=== PATIENT | male | born 1940 | race Caucasian/White ===

== ENCOUNTER 2023-10-28 12:26 | Observation (INO) | payer OTHER ==
[2023-10-28 12:55] LABS: Absolute Lymphocytes (CBC) 1.2 K/uL (0.7-4.9); Hematocrit 44.7 % (39.6-49.0); Lymphocytes % 19.7 % (15.3-44.8); MCV 97.1 fL (80-100); MPV 9.6 fL (7.6-11.3); Platelets 172 thou/uL (152-406)
--- NOTE | 2023-10-28 13:26 | RAD REPORT ---
EXAM DESCRIPTION: Nilesh Single View10/28/2023 12:40 pm CLINICAL HISTORY: ams COMPARISON: No comparisons TECHNIQUE: Portable AP view of the chest. FINDINGS: The lungs show no focal airspace opacities. Mild central interstitial prominence. No pneu mothorax or effusion. The cardiomediastinal contours are unremarkable. IMPRESSION: Mild central interstitial prominence, may reflect mild congestion/CHF.
[2023-10-28 13:28] LABS: Potassium 4.4 mEq/L (3.5-5.1)
[2023-10-28 13:29] LABS: Troponin High Sensitivity 138.6 pg/mL (<58.9)
--- NOTE | 2023-10-28 13:32 | RAD REPORT ---
EXAM DESCRIPTION: CT - Head Brain Wo Cont - 10/28/2023 1:06 pm CLINICAL HISTORY: MENTAL STATUS CHANGE COMPARISON: No comparisons TECHNIQUE: Noncontrast head CT images were obtained without IV contrast. Multiplanar reformats were generated and reviewed. All CT scans are performed using dose optimization technique as appropriate and may include automated exposure control or mA/KV adjustment according to patient size. FINDINGS: No intracranial hemorrhage, mass, or edema. Midline structures are unremarkable. Mild diffuse parenchymal volume loss. Patchy periventricular and deep white matter hypodensities, nonspecific, but suggestive of chronic sm all vessel ischemic changes. Schmitt-white matter differentiation is preserved, without evidence of acute infarct. No abnormal extra- axial fluid collections. Mastoid air cells and visualized portions of the paranasal sinuses are clear. No acute bony findings. IMPRESSION: No evidence of an acute intracranial process. Findings suggestive of chronic small vessel ischemic changes.
--- NOTE | 2023-10-28 13:57 | EDPHYS ---
Physician Documentation [facility] Name: Akash Collins Age: 82 yrs Sex: Male : 1940 Arrival Date: 10/28/2023 Time: 12:26 Bed 15 Private MD: ED Physician Kiko Kaye HPI: 10/28 12:32 This 82 yrs old Male presents to ER via EMS with complaints of AMS. jh7 12:32 The patient presents with decreased responsiveness. Onset: The symptoms/episode jh7 began/occurred 2 hour(s) ago. Possible causes: CVA or TIA, low blood sugar, unknown. Associated signs and symptoms: The patient has no apparent associated signs or symptoms. Current symptoms: In the emergency department the patient's symptoms have resolved, the patient is alert and fully oriented, has normal speech, has normal responsiveness, has no confusion. EMS found out for patient being found unresponsive on his porch. EMS states that patient was responsive to a sternal rub upon arrival but then immediately became fully responsive and has had a GCS of 15 for the past hour. Patient refused IV access or any treatment. Fingerstick blood glucose 170. Patient has a history of A-fib, hypertension, chronic lower back pain, and high cholesterol. Patient has no complaints at this time.. Historical: - Allergies: 12:32 No Known Allergies; rs5 - PMHx: 12:32 Hypertensive disorder; afib; chronic lower back pain; Hypercholesterolemia; Arthritis; rs5 - PSHx: 12:32 appendectomy; carppel tunnel; cataract; rs5 - Immunization history:: Adult Immunizations unknown. - Social history:: Smoking status: Patient denies any tobacco usage or history of. ROS: 12:32 Constitutional: Negative for fever, chills, and weight loss, Eyes: Negative for injury, jh7 pain, redness, and discharge, Neck: Negative for injury, pain, and swelling, Cardiovascular: Negative for chest pain, palpitations, and edema, Respiratory: Negative for shortness of breath, cough, wheezing, and pleuritic chest pain, Back: Negative for injury and pain, MS/Extremity: Negative for injury and deformity, Skin: Negative for injury, rash, and discoloration, Neuro: Negative for headache, weakness, numbness, tingling, and seizure, 12:32 All other systems are negative, Exam: 12:32 Constitutional: This is a well developed, well nourished patient who is awake, alert, jh7 and in no acute distress. Head/Face: Normocephalic, atraumatic. Neck: Trachea midline, no thyromegaly or masses palpated, and no cervical lymphadenopathy. Supple, full range of motion without nuchal rigidity, or vertebral point tenderness. No Meningismus. Cardiovascular: Regular rate and rhythm with a normal S1 and S2. No gallops, murmurs, or rubs. Normal PMI, no JVD. No pulse deficits. Respiratory: Lungs have equal breath sounds bilaterally, clear to auscultation and percussion. No rales, rhonchi or wheezes noted. No increased work of breathing, no retractions or nasal flaring. Abdomen/GI: Soft, non-tender, with normal bowel sounds. No distension or tympany. No guarding or rebound. No evidence of tenderness throughout. Back: No spinal tenderness. No costovertebral tenderness. Full range of motion. Skin: Warm, dry with normal turgor. Normal color with no rashes, no lesions, and no evidence of cellulitis. MS/ Extremity: Pulses equal, no cyanosis. Neurovascular intact. Full, normal range of motion. Neuro: Awake and alert, GCS 15, oriented to person, place, time, and situation. Cranial nerves II-XII grossly intact. Motor strength 5/5 in all extremities. Sensory grossly intact. Cerebellar exam normal. Normal gait. Vital Signs: 12:29 BP 160 / 81; Pulse 80; Resp 17; Pulse Ox 99% on R/A; rs5 13:41 BP 122 / 70; Pulse 55; Resp 16 S; Pulse Ox 100% on R/A; kc6 14:39 BP 124 / 80; Pulse 63; Resp 16 S; Pulse Ox 97% on R/A; kc6 15:01 BP 126 / 81; Pulse 66; Resp 17; Pulse Ox 99% ; rs5 NIH Stroke Scale Scores: 12:32 NIHSS Score: 0 [facility] MDM: 12:31 Patient medically screened. [facility] 14:04 Differential Diagnosis: CVA, electrolyte abnormality, hypoglycemia, intracranial bleed, [facility] pneumonia, seizure, sepsis, TIA, volume depletion. Data reviewed: vital signs, nurses notes, lab test result(s), EKG, radiologic studies, CT scan, plain films. Consideration of Admission/Observation Patient was admitted/placed on observation. Management of patient was discussed with the following: Hospitalist: Dr. Greco. [place]: Dr. Owens, cardiology. Independent interpretation of the following test(s) in the Emergency Department EKG: See my EKG interpretation above. Historians other than the Patient: Spouse/Significant Other: . Daughter/Son: grand daughter. External Records Reviewed: Outpatient record: [facility] notes. Care significantly affected by the following chronic conditions: Hypertension, Congestive Heart Failure, Chronic Kidney Disease. Scoring Tools HEART Score: History: ECG: Age: Risk Factors: Troponin: Total Score = 9. Counseling: I had a detailed discussion with the patient and/or guardian regarding the historical points, exam findings, and any diagnostic results supporting the discharge/admit diagnosis, the need for further work-up and treatment in the hospital. 10/28 12:32 Order name: Basic Metabolic Panel; Complete Time: 13:30 [facility] 10/28 12:32 Order name: CBC with Diff; Complete Time: 13:29 [facility] 10/28 12:32 Order name: NT PRO-BNP; Complete Time: 13:30 [facility] 10/28 12:32 Order name: Troponin HS; Complete Time: 13:30 [facility] 10/28 14:41 Order name: Urinalysis w/ reflexes [facility] 10/28 14:41 Order name: CBC with Automated Diff [facility] 10/28 14:41 Order name: CBC with Automated Diff [facility] 10/28 14:41 Order name: Comprehensive Metabolic Panel [facility] 10/28 14:41 Order name: Comprehensive Metabolic Panel [facility] 10/28 14:41 Order name: Magnesium [facility] 10/28 14:41 Order name: Magnesium [facility] 10/28 14:41 Order name: Protime (+INR) [facility] 10/28 14:41 Order name: Protime (+INR) [facility] 10/28 14:41 Order name: Troponin High Sensitivity [facility] 10/28 14:41 Order name: Troponin High Sensitivity [facility] 10/28 14:41 Order name: Troponin High Sensitivity [facility] 10/28 14:41 Order name: Troponin High Sensitivity [facility] 10/28 12:32 Order name: XRAY Chest (1 view); Complete Time: 13:29 [facility] 10/28 12:32 Order name: CT Head Brain wo Cont; Complete Time: 13:42 [facility] 10/28 13:43 Order name: MRI - Brain Wo Cont [facility] 10/28 12:32 Order name: EKG; Complete Time: 12:33 [facility] 10/28 14:38 Order name: CONS Physician Consult [facility] 10/28 12:32 Order name: Cardiac monitoring; Complete Time: 12:50 [facility] 10/28 12:32 Order name: EKG - Nurse/Tech; Complete Time: 12:50 [facility] 10/28 12:32 Order name: IV Saline Lock; Complete Time: 12:50 [facility] 10/28 12:32 Order name: Labs collected and sent; Complete Time: 12:50 [facility] 10/28 12:32 Order name: O2 Per Protocol; Complete Time: 12:50 [facility] 10/28 12:32 Order name: O2 Sat Monitoring; Complete Time: 12:50 [facility] EC:49 Rate is 74 beats/min. Rhythm is irregularly irregular. QRS [place] is Normal. Right axis [facility] deviation noted. QRS interval is normal at 100 msec. QT interval is normal at 398 msec. No Q waves. T waves are Normal. No ST changes noted. Clinical impression: Atrial Fibrillation. Administered Medications: No medications were administered Disposition: 16:32 Co-signature as Attending Physician, Kiko Kaye MD I agree with the assessment and kdr plan of care. Disposition Summary: 10/28/23 13:56 Hospitalization Ordered Notes: Provider: Matthew Greco [place] Location: Telemetry/MedSurg (Inpatient) [facility] Condition: Stable [facility] Problem: new [facility] Symptoms: are unchanged [facility] Bed/Room Type: Standard [facility] Hospitalization Status: Observation(10/28/23 14:37) [facility] Room Assignment: 407(10/28/23 14:51) eb Diagnosis - Subsequent non-ST elevation (NSTEMI) myocardial infarction [facility] - Chronic kidney disease, stage 3 (moderate) [facility] - Unspecified atrial fibrillation [facility] Forms: - Medication Reconciliation Form [facility] - SBAR form [facility] - Leadership Thank You Letter [facility] NIH Stroke Scale - NIH Stroke Score Date: 10/28/2023 Time: 12:32 Total Score = 0 10. Dysarthria (speech clarity - read or repeat words) - 0(Normal) 11. Extinction and Inattention (visual/tactile/auditory/spatial/personal) - 0(No abnormality) 1a. Level of Consciousness (LOC) - 0(Alert) 1b. Level of Consciousness (LOC) (Month \T\ Age) - 0(Both) 1c. LOC Commands (Open \T\ Closes Eyes/Lead Android Developer) - 0(Both) 2. Best Gaze (Lateral Gaze Paresis) - 0(Normal) 3. Visual Field Loss - 0(No visual loss) 4. Facial Palsy - 0(Normal) 5a. Left Arm: Motor (10-second hold) - 0(No drift) 5b. Right Arm: Motor (10-second hold) - 0(No drift) 6a. Left Leg: Motor (5-second hold - always test supine) - 0(No drift) 6b. Right Leg: Motor (5-second hold - always test supine) - 0(No drift) 7. Limb Ataxia (finger/nose \T\ heel/sy - test with eyes open) - 0(Absent) 8. Sensory Loss (pinprick arms/legs/face) - 0(Normal) 9. Best Language: Aphasia (description/naming/reading) - 0(No aphasia) Initials: [facility] Signatures: Dispatcher [employer] EDMS Kiko Kaye MD MD [facility], FNP SHIRRING MACHINE OPERATOR [facility] Aditya Roach RN RN rs5 Corrections: (The following items were deleted from the chart) 12:36 12:32 Allergies: No Known Allergies; 5 5 12:48 12:32 This 82 yrs old Male presents to ER via EMS with complaints of AMS. [place] [id number] 14:37 13:56 Inpatient Admission [place] [address] 14:51 13:56 [place]
--- NOTE | 2023-10-28 13:57 | ER ---
Nurse's Notes [facility] Name: Akash Collins Age: 82 yrs Sex: Male : 1940 Arrival Date: 10/28/2023 Time: 12:26 Bed 15 Private MD: Diagnosis: Subsequent non-ST elevation (NSTEMI) myocardial infarction;Chronic kidney disease, stage 3 (moderate);Unspecified atrial fibrillation Presentation: 10/28 12:29 Chief complaint: EMS states: " found pt on unresponsive on porch chair and called rs5 EMS, pt was alert and oriented on arrival". Coronavirus screen: At this time, the client does not indicate any symptoms associated with coronavirus-19. Ebola Screen: No symptoms or risks identified at this time. Initial Sepsis Screen: Does the patient meet any 2 criteria? No. Patient's initial sepsis screen is negative. Does the patient have a suspected source of infection? No. Patient's initial sepsis screen is negative. Risk Assessment: Do you want to hurt yourself or someone else? Patient reports no desire to harm self or others. Onset of symptoms was October 28, 2023. 12:29 Method Of Arrival: EMS: [facility] rs 12:29 Acuity: SANDY 3 rs5 Historical: - Allergies: 12:32 No Known Allergies; rs5 - PMHx: 12:32 Hypertensive disorder; afib; chronic lower back pain; Hypercholesterolemia; Arthritis; rs5 - PSHx: 12:32 appendectomy; carppel tunnel; cataract; rs5 - Immunization history:: Adult Immunizations unknown. - Social history:: Smoking status: Patient denies any tobacco usage or history of. Screenin:50 [facility] ED Fall Risk Assessment (Adult) History of falling in the last 3 months, kc6 including since admission No falls in past 3 months (0 pts) Confusion or Disorientation No (0 pts) Intoxicated or Sedated No (0 pts) Impaired Gait No (0 pts) Mobility Assist Device Used No (0 pt) Altered Elimination No (0 pt) Score/Fall Risk Level 0 - 2 = Low Risk. Abuse screen: Denies threats or abuse. Denies injuries from another. Nutritional screening: No deficits noted. Tuberculosis screening: No symptoms or risk factors identified. Assessment: 12:51 General: Appears in no apparent distress. comfortable, well groomed, well developed, kc6 Behavior is calm, cooperative, appropriate for age. Pain: Denies pain. Neuro: Level of Consciousness is awake, alert, obeys commands, Oriented to person, place, time, situation, Appropriate for age. Cardiovascular: Capillary refill < 3 seconds. Respiratory: Airway is patent Trachea midline Respiratory effort is even, unlabored, Respiratory pattern is regular, symmetrical. GI: No signs and/or symptoms were reported involving the gastrointestinal system. : No signs and/or symptoms were reported regarding the genitourinary system. EENT: No signs and/or symptoms were reported regarding the EENT system. Derm: No signs and/or symptoms reported regarding the dermatologic system. Skin is intact, is healthy with good turgor, Skin is pink, warm \\T\\ dry. Musculoskeletal: No signs and/or symptoms reported regarding the musculoskeletal system. Circulation, motion, and sensation intact. Capillary refill < 3 seconds, Range of motion: intact in all extremities. 13:41 Reassessment: Patient appears in no apparent distress at this time. No changes from kc6 previously documented assessment. Patient and/or family updated on plan of care and expected duration. Pain level reassessed. Patient is alert, oriented x 3, equal unlabored respirations, skin warm/dry/pink. 14:39 Reassessment: Patient appears in no apparent distress at this time. No changes from kc6 previously documented assessment. Patient and/or family updated on plan of care and expected duration. Pain level reassessed. Patient is alert, oriented x 3, equal unlabored respirations, skin warm/dry/pink. 15:09 Reassessment: Patient appears in no apparent distress at this time. No changes from kc6 previously documented assessment. Patient and/or family updated on plan of care and expected duration. Pain level reassessed. Patient is alert, oriented x 3, equal unlabored respirations, skin warm/dry/pink. attempted to call report to 4th floor. nurse unavailable at this time. Vital Signs: 12:29 BP 160 / 81; Pulse 80; Resp 17; Pulse Ox 99% on R/A; rs5 13:41 BP 122 / 70; Pulse 55; Resp 16 S; Pulse Ox 100% on R/A; kc6 14:39 BP 124 / 80; Pulse 63; Resp 16 S; Pulse Ox 97% on R/A; kc6 15:01 BP 126 / 81; Pulse 66; Resp 17; Pulse Ox 99% ; rs5 Vitals: 13:41 Cardiac Rhythm Assessment Atrial fibrillation. kc6 NIH Stroke Scale Scores: 12:32 NIHSS Score: 0 [facility] ED Course: 12:29 Patient arrived in ED. rs5 12:29 Kiko Kaye MD is Attending Physician. kdr 12:31 [facility] jh7 12:31 Kiko Kaye MD is Attending Physician. [facility] 12:32 Triage completed. rs5 12:37 Aditya Roach, EMMANUEL is Primary Nurse. rs5 12:42 XRAY Chest (1 view) In Process Unspecified. EDMS 12:50 Inserted saline lock: 20 gauge in right wrist, using aseptic technique. Blood kc6 collected. Patient maintains SpO2 saturation greater than 95% on room air. 12:51 Patient has correct armband on for positive identification. Bed in low position. Call kc6 light in reach. Side rails up X2. Adult w/ patient. Client placed on continuous cardiac and pulse oximetry monitoring. NIBP monitoring applied. air sampling and monitoring on. 12:51 Arm band placed on. kc6 13:08 CT Head Brain wo Cont In Process Unspecified. EDMS 13:52 Matthew Greco MD is Hospitalizing Provider. [facility] 14:05 Door closed. Noise minimized. Visitors limited. Lights dimmed. Warm blanket given. Head kc6 of bed elevated. 15:30 No provider procedures requiring assistance completed. rs5 15:30 IV discontinued, intact, bleeding controlled, No redness/swelling at site. Pressure rs5 dressing applied. Administered Medications: No medications were administered Medication: 15:01 VIS not applicable for this client. rs5 Outcome: 13:56 Decision to Hospitalize by Provider. 7 15:30 Discharged to home ambulatory, rs5 15:30 Condition: stable 15:30 Discharge instructions given to patient, family, Instructed on discharge instructions, follow up and referral plans. 15:33 Patient left the ED. hb NIH Stroke Scale - NIH Stroke Score Date: 10/28/2023 Time: 12:32 Total Score = 0 10. Dysarthria (speech clarity - read or repeat words) - 0(Normal) 11. Extinction and Inattention (visual/tactile/auditory/spatial/personal) - 0(No abnormality) 1a. Level of Consciousness (LOC) - 0(Alert) 1b. Level of Consciousness (LOC) (Month \\T\\ Age) - 0(Both) 1c. LOC Commands (Open \\T\\ Closes Eyes/Radio Electrician) - 0(Both) 2. Best Gaze (Lateral Gaze Paresis) - 0(Normal) 3. Visual Field Loss - 0(No visual loss) 4. Facial Palsy - 0(Normal) 5a. Left Arm: Motor (10-second hold) - 0(No drift) 5b. Right Arm: Motor (10-second hold) - 0(No drift) 6a. Left Leg: Motor (5-second hold - always test supine) - 0(No drift) 6b. Right Leg: Motor (5-second hold - always test supine) - 0(No drift) 7. Limb Ataxia (finger/nose \\T\\ heel/sy - test with eyes open) - 0(Absent) 8. Sensory Loss (pinprick arms/legs/face) - 0(Normal) 9. Best Language: Aphasia (description/naming/reading) - 0(No aphasia) Initials: [facility] Signatures: Dispatcher [employer] EDMS Kiko Kaye MD MD [facility] Adrianne Parnell RN RN Elizabeth Vera FNP FNBanner Sabrina Nevarez RN RN kc6 Aditya Roach RN RN rs5 Corrections: (The following items were deleted from the chart) 12:36 12:32 Allergies: No Known Allergies; rs5 rs5
[2023-10-28] MEDS ORDERED: ONDANSETRON 4 MG/2 ML VIAL IV PRN (14:36)
--- NOTE | 2023-10-28 14:40 | P.HP ---
Certification for Inpatient Patient admitted to: Observation Practitioner: I am a practitioner with admitting privileges, knowledge of patient current condition, hospital course, and medical plan of care. Services: Services provided to patient in accordance with Admission requirements found in Title 42 Section 412.3 of the Code of Federal Regulations Patient History Date of Service: 10/28/23 History of Present Illness: 82 year old male with a past medical history of hypertension, A-fib, chronic anticoagulation Coumadin, hyperlipidemia, arthritis presents to the emergency room after being found unresponsive on the porch. Family called EMS, patient responded to sternal rub, patient became fully responsive, GCS 15, blood glucose 170, patient reports sitting outside in the sun, found patient lying on the porch. No reported chest pain, shortness of breath, fever, nausea vomiting, diarrhea, no reported pain with range of motion. Plan to admit for elevated troponin, history of A-fib, chronic anticoagulation, acute on chronic kidney injury. With cardiology to consult due to the troponin. BP 160 / 81; Pulse 80; Resp 17; Pulse Ox 99% on R/A; Review of Systems PER HPI Physical Examination - Physical Exam General: Alert, In no apparent distress, Oriented x3 HEENT: Atraumatic, Normocephalic Neck: Supple, 2+ carotid pulse no bruit Respiratory: Clear to auscultation bilaterally, Normal air movement Cardiovascular: No edema, Normal pulses Capillary refill: <2 Seconds Gastrointestinal: Normal bowel sounds, Soft and benign Musculoskeletal: No clubbing, No swelling Neurological: Normal gait, Normal speech, Normal strength at 5/5 x4 extr - Studies Laboratory Data (last 24 hrs) 10/28/23 10/28/23 12:48 12:48 WBC 6.10 Hgb 15.0 Hct 44.7 Plt Count 172 Sodium 139 Potassium 4.4 BUN 33 H Creatinine 2.46 H Glucose 162 H Assessment and Plan - Plan Assessment plan NSTEMI A-fib controlled rate Chronic anticoagulation on Coumadin Cardiology consult, telemetry, trend troponin Rate is 74 beats/min. Rhythm is irregularly irregular. QRS [place] is Normal. Right axis jh7 deviation noted. QRS interval is normal at 100 msec. QT interval is normal at 398 msec. No Q waves. T waves are Normal. No ST changes noted. Clinical impression: Atrial Fibrillation. Resume appropriate home meds Troponin 138.6 BNP 967 Chest x-ray IMPRESSION: Mild central interstitial prominence, may reflect mild congestion/CHF. CT of the head IMPRESSION: No evidence of an acute intracranial process. Findings suggestive of chronic small vessel ischemic changes. Fall, Found unresponsive fall precautions, Acute on chronic kidney injury history of CKD Trend kidney function, BUN 33 creatinine 2.46 Full code DVT Coumadin Diet cardiac Disposition: Home with spouse, independent prior Discharge Plan: Home Plan to discharge in: 24 Hours - Advance Directives Does patient have a Living Will: No Does patient have a Durable POA for Healthcare: No - Code Status/Comfort Care Code Status: Full Code Critical Care: No Time Spent Managing Pts Care (In Minutes): 55
[2023-10-28] MEDS ORDERED: D50W 25 GM/50 ML SYRINGE IV PRN (15:00)
[2023-10-28] MEDS ORDERED: GLUCAGON 1 MG/VIAL IM PRN (15:00)
[2023-10-28 15:59] VITALS: O2SAT 97
[2023-10-28 16:21] VITALS: BMI 38.5
[2023-10-28] MEDS: INSULIN REGULAR (HUMAN) 100 UNIT/ML SQ SCH (16:30)
[2023-10-29 07:17] LABS: Absolute Lymphocytes (CBC) 1.4 K/uL (0.7-4.9); Hematocrit 41.1 % (39.6-49.0); Lymphocytes % 24.2 % (15.3-44.8); MCV 97.2 fL (80-100); MPV 9.9 fL (7.6-11.3); Platelets 174 thou/uL (152-406); RBC Red Blood Cell Count 4.23 M/uL (4.33-5.43)
[2023-10-29 07:20] LABS: Protime INR 1.57
[2023-10-29 07:34] LABS: Albumin 3.5 g/dL (3.4-5.0); Bilirubin Total 0.2 mg/dL (0.2-1.0); Potassium 3.9 mEq/L (3.5-5.1); Protein, Total 7.6 g/dL (6.4-8.2)
--- NOTE | 2023-10-29 08:03 | P.DS ---
Admission Date: 10/28/23 Discharge Date: 10/29/23 Disposition: ROUTINE DISCHARGE Discharge Condition: FAIR Brief History of Present Illness: 82 year old male with a past medical history of hypertension, A-fib, chronic anticoagulation Coumadin, hyperlipidemia, arthritis presents to the emergency room after being found unresponsive on the porch. Family called EMS, patient responded to sternal rub, patient became fully responsive, GCS 15, blood glucose 170, patient reports sitting outside in the sun, found patient lying on the porch. No reported chest pain, shortness of breath, fever, nausea vomiting, diarrhea, no reported pain with range of motion. Plan to admit for elevated troponin, history of A-fib, chronic anticoagulation, acute on chronic kidney injury. With cardiology to consult due to the troponin. BP 160 / 81; Pulse 80; Resp 17; Pulse Ox 99% on R/A; Physical Exam General: Alert, In no apparent distress, Oriented x3 HEENT: Atraumatic, Normocephalic Neck: Supple, 2+ carotid pulse no bruit Respiratory: Clear to auscultation bilaterally, Normal air movement Cardiovascular: No edema, Normal pulses Capillary refill: <2 Seconds Gastrointestinal: Normal bowel sounds, Soft and benign Musculoskeletal: No clubbing, No swelling Neurological: Normal gait, Normal speech, Normal strength at 5/5 x4 extr Hospital Course: 82 year-old male patient presented with syncopal episode, was noted to have elevated troponin, GCS normal on arrival to ER from EMS. Condition improved with routine monitoring. BG normal, was evaluated by cardiology. Patient tolerating diet, stable for discharge. with follow-up appointment with primary care physician, cardiology after discharge. Family stated patient had a recent change in blood pressure medications. Instructed to check systolic blood pressure prior to given antihypertensives. Patient and family verbalized understanding. Needs a further follow-up with cardiology for additional cardiac testing. Patient and family reported recent echocardiogram, with recent change in blood pressure medications. PROBLEM: elevated troponin Syncopal episode follow up cardiolgy next week. Continue home medicines as previously prescribed Instructed to check systolic blood pressure prior to given antihypertensives. Patient and family verbalized understanding. Needs a further follow-up with cardiology for additional cardiac testing. GOAL: Clear understanding of disease process INSTRUCTIONS: Physician Discharge Instructions: -DC IV and DC home -Follow-up with PCP in 1 to 2 weeks -Please call Dr. Greco at [phone] if any questions regarding hospital stay -Please call nursing station at [phone] if any nursing or medication questions -Return to the emergency room if symptoms worsen Diet: ADA, low sodium Activity: Fall precautions Vital Signs/Physical Exam: Temp Pulse Resp BP Pulse Ox 97.2 F 62 15 121/56 L 98 10/29/23 04:00 10/29/23 04:00 10/29/23 04:00 10/29/23 04:00 10/29/23 04:00 Laboratory Data at Discharge: WBC 5.80 thou/uL (4.3-10.9) 10/29/23 07:05 Hgb 13.8 g/dL (13.6-17.9) 10/29/23 07:05 Hct 41.1 % (39.6-49.0) 10/29/23 07:05 Plt Count 174 thou/uL (152-406) 10/29/23 07:05 PT 17.0 SECONDS (9.5-12.5) H 10/29/23 07:05 INR 1.57 10/29/23 07:05 Sodium 140 mEq/L (136-145) 10/29/23 07:05 Potassium 3.9 mEq/L (3.5-5.1) 10/29/23 07:05 BUN 31 mg/dL (7-18) H 10/29/23 07:05 Creatinine 1.85 mg/dL (0.70-1.30) H 10/29/23 07:05 Glucose 194 mg/dL (74-106) H 10/29/23 07:05 Magnesium 2.0 mg/dL (1.6-2.4) 10/29/23 07:05 Total Bilirubin 0.2 mg/dL (0.2-1.0) 10/29/23 07:05 AST 22 U/L (15-37) 10/29/23 07:05 ALT 20 U/L (16-61) 10/29/23 07:05 Alkaline Phosphatase 72 U/L (45-117) 10/29/23 07:05 Home Medications: Diclofenac Sodium [Voltaren] 1 idalia TOP QID 10/28/23 Ezetimibe [Zetia*] 10 mg PO DAILY 10/28/23 Furosemide [Lasix] 20 mg PO BID 10/28/23 Gabapentin [Neurontin*] 100 mg PO TID 10/28/23 LIDOCAINE 5% Ointment [Lidocaine HCl*] 35.44 gm TP BID 10/28/23 Lisinopril [Zestril] 40 mg PO DAILY 10/28/23 Warfarin Sodium [Coumadin*] 1.5 tab PO DAILY 5 PM 10/28/23 carvediloL [Coreg*] 2 tab PO BID 10/28/23 methocarbamoL [Robaxin*] 500 mg PO TID PRN 10/28/23 Warfarin Sodium [Coumadin*] 7.5 mg PO DAILY 5 PM tab 10/29/23 lisinopriL [Prinivil*] 40 mg PO DAILY tab 10/29/23 Physician Discharge Instructions: PROBLEM: syncopal episode, HTN, elevated troponin GOAL: Clear understanding of disease process INSTRUCTIONS: INSTRUCTIONS: Physician Discharge Instructions: -DC IV and DC home -Follow-up with PCP in 1 to 2 weeks -Please call Dr. Greco at [phone] if any questions regarding hospital stay -Please call nursing station at [phone] if any nursing or medication questions -Return to the emergency room if symptoms worsen Diet: ADA, low sodium Activity: Fall precautions 82 year-old male patient presented with syncopal epsidode. Was noted to have elevated troponin, GCS normal on arrival to ER from EMS. Condition improved with routine monitoring. BG normal, was evaluated by cardiology. Patient tolerating diet, stable for discharge to home with follow-up appointment with primary care physician, cardiology after discharge. per family patient was recently added blood meds to home meds. Please resume meds as previously ordered. PROBLEM: elevated troponin syncopal episode resume home bp meds as previously ordered follow up cardiolgy next week, Continue home medicines as previously prescribed GOAL: Clear understanding of disease process Diet: AHA Activity: Fall precautions Followup: Sonido Howell MD [Primary Care Provider] - 1 Week (follow up with cardiolgy ) Time spent managing pt's care (in minutes): 55
[2023-10-29] MEDS: EZETIMIBE 10 MG TAB PO SCH (08:57)
[2023-10-29] MEDS: lisinopriL 20 MG TAB PO SCH (08:58)
[2023-10-29] MEDS: FUROSEMIDE 20 MG TABLET PO SCH (08:58)
[2023-10-29] MEDS: GABAPENTIN 100 MG CAP PO SCH (08:58)
[2023-10-29] MEDS: carvediloL 12.5 MG TAB PO SCH (08:58)
[2023-10-29 12:52] VITALS: BP 147/72; TEMP 97.7
[2023-10-29] MEDS ORDERED: WARFARIN SODIUM 5 MG TAB PO SCH (17:00)
--- NOTE | 2023-10-30 14:34 | EKG ---
Test Date: 2023-10-28 Test Time: 12:49:32 Police Specialist: ROSS MEASUREMENT RESULTS: Intervals: Rate: 74 RI: QRSD: 100 QT: 398 QTc: 441 [place]: P: RI: QRS: 105 T: 18 INTERPRETIVE STATEMENTS: Atrial fibrillation Rightward axis Anteroseptal infarct, age undetermined Abnormal ECG No previous ECG available for comparison Electronically Signed On 10-30-23 14:28:33 PRODUCT MARKETING ENGINEER by Jordon Smith
== END 2023-10-29 12:55 | disposition home or self-care (01) ==
LOC: ER 12:26 → ERHOLD 14:34 → 4TH 15:24
PROVIDERS: ADMIT Hospitalist; ATTEND Hospitalist
DX: I21.4 Non-ST elevation (NSTEMI) myocardial infarction (principal); I48.11 Longstanding persistent atrial fibrillation; N18.30 Chronic kidney disease, stage 3 unspecified; R55 Syncope and collapse; E78.00 Pure hypercholesterolemia, unspecified; M54.50 Low back pain, unspecified; I10 Essential (primary) hypertension; E78.5 Hyperlipidemia, unspecified; R79.89 Other specified abnormal findings of blood chemistry; R29.700 NIHSS score 0; Z79.01 Long term (current) use of anticoagulants
CPT/HCPCS: 36415; 70450; 71045; 80048; 80053; 83735; 83880; 84484; 85025; 85610; 93005; G0378